=== PATIENT | female | born 1950 | race Caucasian/White ===

== ENCOUNTER 2023-06-14 16:25 | Inpatient (IN) | payer MEDICARE, OTHER ==
[~2023-06-14] VITALS: Ht 167.6 cm; Wt 80.0 kg
[2023-06-14] MEDS ORDERED: FAMOTIDINE (10MG/ML) 2ML VL IV ONE (17:15)
[2023-06-14] MEDS ORDERED: diphenhdrAMINE HCL 25 MG CAP PO ONE (17:15)
[2023-06-14] MEDS ORDERED: methylPREDNISolone SOD SUCC 40 MG/ML VL IV ONE (17:15)
[2023-06-14] MEDS ORDERED: EPINEPHrine HCL 1 MG/1 ML AMP IM ONE (17:15)
[2023-06-14] MEDS ORDERED: SODIUM CHLORIDE 0.9% 500 ML IV ONE (17:15)
[2023-06-14 17:27] LABS: Hematocrit 44.8 % (36.0-46.0); Hemoglobin 14.9 g/dL (12.2-16.2); Mean Corpuscular Hemoglobin 31.2 pg (28.0-32.0); Mean Corpuscular Hgb Conc. 33.2 g/dL (32.0-36.0); Mean Corpuscular Volume 93.9 fL (80.0-100.0); Red Blood Cells 4.77 10^6/uL (4.0-5.20); Red Cell Distribution Width 13.6 % (11.8-14.3); White Blood Cell 22.8 10^3/uL (4.4-10.8)
[2023-06-14 17:45] LABS: Band Neutrophils % (manual) 0; Basophils % (manual) 0 (0.0-2.0); Blast Cells 0; Metamyelocytes % 0; Myelocytes % 0; Promyelocytes % 0; Reactive Lymphocytes 0
[2023-06-14 17:47] LABS: Albumin 2.4 g/dL (3.4-5.0); Calcium 8.7 mg/dL (8.5-10.1); Potassium 3.8 mmol/L (3.5-5.1)
[2023-06-14 17:51] LABS: BUN/Creatinine Ratio 14.5 (10.0-20.0); Bilirubin, Total 0.3 mg/dL (0.2-1.0); Total Protein 6.9 g/dL (6.4-8.2)
[2023-06-14] MEDS ORDERED: methylPREDNISolone SOD SUCC 125 MG/2 ML VL IV ONE (18:00)
[2023-06-14] MEDS ORDERED: ALBUTEROL SULF 2.5 MG/0.5ML(0.5%) NEB SOLN NEB ONE (19:00)
[2023-06-14] MEDS ORDERED: ALBUTEROL SULF 2.5 MG/0.5ML(0.5%) NEB SOLN ONE (19:03)
[2023-06-14 19:25] LABS: Eosinophils % (manual) 64 (0-7); Lymphocytes % (manual) 6 (10.0-50.0); Monocytes % (manual) 3 (0-12)
[2023-06-14 19:26] LABS: Platelet Estimate Adequate; RBC Morphology Normal
[2023-06-14 19:42] LABS: Lactic Acid w/Reflex 2.1 mmol/L (0.4-2.0)
[2023-06-14] MEDS ORDERED: ALBUTEROL SULF 2.5 MG/0.5ML(0.5%) NEB SOLN NEB PRN (21:45)
[2023-06-14] MEDS ORDERED: MORPHINE SULFATE INJ 2 MG/ml SYRG IV PRN (21:45)
[2023-06-14] MEDS ORDERED: NITROGLYCERIN 0.4 MG SL TAB SL PRN (21:45)
[2023-06-14] MEDS ORDERED: ACETAMINOPHEN 325 MG TAB PO PRN (21:45)
[2023-06-14] MEDS ORDERED: IPRATROPIUM BROM 0.5 MG/2.5ML INH SOL NEB PRN (21:45)
[2023-06-14 21:54] VITALS: BP 109/86; PULSE 72; RESP 20; TEMP 98.2; O2SAT 97
[2023-06-14] MEDS ORDERED: SODIUM CHLORIDE 0.9% 1,000 ML IV ONE (22:00)
[2023-06-14] MEDS: IPRATROPIUM BROM 0.5 MG/2.5ML INH SOL NEB SCH (22:12)
[2023-06-14 22:13] VITALS: O2SAT 96
[2023-06-14] MEDS: ALBUTEROL SULF 2.5 MG/0.5ML(0.5%) NEB SOLN NEB SCH (22:13)
[2023-06-14] MEDS ORDERED: FLUT100I PO (22:14)
[2023-06-14] MEDS ORDERED: LISI2.5T47 PO (22:14)
[2023-06-14] MEDS ORDERED: LEVO-177 PO (22:14)
[2023-06-14 22:19] LABS: Urine Bacteria FEW /hpf (None Seen); Urine Blood TRACE /uL (Negative); Urine Clarity HAZY (Clear); Urine Color Yellow (Yellow); Urine Hyaline Cast FEW /lpf (0 - 2); Urine Mucus FEW (None Seen); Urine Protein, UAD 1+ (Negative); Urine Specific Gravity 1.018 (1.001-1.035); Urine Urobilinogen Normal (Negative); Urine WBC 12 /hpf (0 - 5); Urine pH 5.5 (5.0-8.0)
[2023-06-14] MEDS: ceFAZolin 1GM/50ML 50 ML IV SCH (22:39)
[2023-06-14] MEDS ORDERED: methylPREDNISolone SOD SUCC 125 MG/2 ML VL ONE (22:52)
[2023-06-14] MEDS: methylPREDNISolone SOD SUCC 40 MG/ML VL IV SCH (23:21)
[2023-06-14 23:45] VITALS: PULSE 81; RESP 19; O2SAT 100
[2023-06-15] VITALS (13 sets, daily range): PULSE 88–115; RESP 18–24; O2SAT 96–99
[2023-06-15 01:04] LABS: COVID19 ANTIGEN SOFIA FIA NEGATIVE (NEGATIVE)
[2023-06-15] MEDS: ALBUTEROL SULF 2.5 MG/0.5ML(0.5%) NEB SOLN NEB SCH ×6 (02:00→22:29)
[2023-06-15] MEDS: IPRATROPIUM BROM 0.5 MG/2.5ML INH SOL NEB SCH ×6 (02:00→22:29)
[2023-06-15] MEDS: diphenhdrAMINE HCL 25 MG CAP PO PRN ×3 (02:04→15:58)
[2023-06-15 04:49] LABS: Hematocrit 39.1 % (36.0-46.0); Hemoglobin 12.9 g/dL (12.2-16.2); Mean Corpuscular Hemoglobin 31.4 pg (28.0-32.0); Mean Corpuscular Hgb Conc. 33.1 g/dL (32.0-36.0); Red Blood Cells 4.11 10^6/uL (4.0-5.20); Red Cell Distribution Width 13.3 % (11.8-14.3); White Blood Cell 16.8 10^3/uL (4.4-10.8)
[2023-06-15 05:01] LABS: Albumin 2.4 g/dL (3.4-5.0); Calcium 8.2 mg/dL (8.5-10.1); Potassium 3.8 mmol/L (3.5-5.1)
[2023-06-15 05:04] LABS: BUN/Creatinine Ratio 16.9 (10.0-20.0); Bilirubin, Total 0.2 mg/dL (0.2-1.0); Total Protein 6.8 g/dL (6.4-8.2)
[2023-06-15 05:19] LABS: Basophils % (manual) 0 (0.0-2.0); Blast Cells 0; Metamyelocytes % 0; Myelocytes % 0; Promyelocytes % 0; Reactive Lymphocytes 0
[2023-06-15] MEDS: ceFAZolin 1GM/50ML 50 ML IV SCH (05:59)
[2023-06-15] MEDS: LEVOTHYROXINE SODIUM 88 MCG TAB PO SCH (06:57)
[2023-06-15 08:48] LABS: Band Neutrophils % (manual) 3
[2023-06-15 08:49] LABS: Eosinophils % (manual) 38 (0-7); Lymphocytes % (manual) 15 (10.0-50.0); Monocytes % (manual) 3 (0-12)
[2023-06-15 08:50] LABS: Platelet Estimate Adequate; RBC Morphology Normal
[2023-06-15] MEDS ORDERED: methylPREDNISolone SOD SUCC 125 MG/2 ML VL ONE (10:31)
[2023-06-15] MEDS: FAMOTIDINE (10MG/ML) 2ML VL IV SCH ×2 (10:37→23:27)
[2023-06-15] MEDS: methylPREDNISolone SOD SUCC 40 MG/ML VL IV SCH ×2 (10:40→23:27)
[2023-06-15] MEDS: cefTRIAXone 1GM/50ML D5W 50 ML IV SCH (13:00)
[2023-06-15] MEDS: SODIUM CHLORIDE 0.9% 1,000 ML IV SCH ×3 (13:00→22:00)
[2023-06-15] MEDS ORDERED: PRAVASTATIN SODIUM 20 MG TAB PO SCH (22:00)
[2023-06-16] VITALS (9 sets, daily range): BP systolic 133–152; BP diastolic 54–80; PULSE 76–91; RESP 16–20; TEMP 97.4–98.7; O2SAT 90–99
[2023-06-16] MEDS: diphenhdrAMINE HCL 25 MG CAP PO PRN ×2 (01:08→08:55)
[2023-06-16] MEDS: IPRATROPIUM BROM 0.5 MG/2.5ML INH SOL NEB SCH ×4 (02:00→14:00)
[2023-06-16] MEDS: ALBUTEROL SULF 2.5 MG/0.5ML(0.5%) NEB SOLN NEB SCH ×4 (02:00→14:00)
[2023-06-16] MEDS ORDERED: PRAV20TA3 PO (04:46)
[2023-06-16] MEDS: SODIUM CHLORIDE 0.9% 1,000 ML IV SCH (06:10)
[2023-06-16] MEDS: LEVOTHYROXINE SODIUM 88 MCG TAB PO SCH (06:20)
[2023-06-16 08:28] LABS: Hemoglobin 11.8 g/dL (12.2-16.2)
[2023-06-16 08:31] LABS: Hematocrit 35.9 % (36.0-46.0); Mean Corpuscular Hemoglobin 31.1 pg (28.0-32.0); Mean Corpuscular Hgb Conc. 32.9 g/dL (32.0-36.0); Mean Corpuscular Volume 94.4 fL (80.0-100.0); Red Blood Cells 3.81 10^6/uL (4.0-5.20); Red Cell Distribution Width 13.5 % (11.8-14.3)
[2023-06-16 08:38] LABS: Albumin 2.7 g/dL (3.4-5.0); Calcium 7.7 mg/dL (8.5-10.1); Potassium 3.9 mmol/L (3.5-5.1)
[2023-06-16 08:41] LABS: BUN/Creatinine Ratio 20.9 (10.0-20.0); Bilirubin, Total 0.2 mg/dL (0.2-1.0); Total Protein 7.4 g/dL (6.4-8.2)
[2023-06-16] MEDS: cefTRIAXone 1GM/50ML D5W 50 ML IV SCH (08:55)
[2023-06-16 09:26] LABS: White Blood Cell 31.6 10^3/uL (4.4-10.8)
[2023-06-16 09:29] LABS: Basophils % (manual) 0 (0.0-2.0); Blast Cells 0; Promyelocytes % 0; Reactive Lymphocytes 0
[2023-06-16] MEDS ORDERED: PRED20TA2 PO ×2 (11:17)
[2023-06-16] MEDS ORDERED: NITR-52 PO ×2 (11:17)
[2023-06-16] MEDS: FAMOTIDINE (10MG/ML) 2ML VL IV SCH (11:49)
[2023-06-16] MEDS: methylPREDNISolone SOD SUCC 40 MG/ML VL IV SCH (11:49)
[2023-06-16 12:02] LABS: Band Neutrophils % (manual) 9; Eosinophils % (manual) 18 (0-7); Lymphocytes % (manual) 10 (10.0-50.0); Metamyelocytes % 3; Monocytes % (manual) 6 (0-12); Myelocytes % 1; Platelet Estimate Adequate
== END 2023-06-16 15:25 | disposition home or self-care (01) | DRG 606 ==
LOC: ER 16:25 → TELE 21:49 → TELE-EAST 06-15 22:02
PROVIDERS: ADMIT Internal Medicine Pulmonary Disease
DX: L50.0 Allergic urticaria (principal); E43 Unspecified severe protein-calorie malnutrition; N12 Tubulo-interstitial nephritis, not specified as acute or chronic; N17.9 Acute kidney failure, unspecified; I10 Essential (primary) hypertension; E78.5 Hyperlipidemia, unspecified; E03.9 Hypothyroidism, unspecified; E86.0 Dehydration; E11.9 Type 2 diabetes mellitus without complications; Z68.28 Body mass index [BMI] 28.0-28.9, adult; Z85.3 Personal history of malignant neoplasm of breast; Z88.5 Allergy status to narcotic agent; Z88.8 Allergy status to other drugs, medicaments and biological substances
CPT/HCPCS: 36415; 71045; 80053; 81001; 82550; 83036; 83605; 84443; 84484; 85007; 85027; 87040; 87426; 93005; 94640; 96361; 96372; 96374; 96375; G0378; J0171; J0690; J0696; J3490

== ENCOUNTER 2023-06-17 14:25 | Inpatient (IN) | payer MEDICARE, OTHER ==
[~2023-06-17] VITALS: Ht 167.6 cm; Wt 79.0 kg
[~2023-06-17 14:25] MED LIST: FLUT100I PO; LEVO-177 PO; LISI2.5T47 PO; NITR-52 PO; PRAV20TA3 PO; PRED20TA2 PO
[2023-06-17] MEDS ORDERED: ALBUTEROL SULF 2.5 MG/0.5ML(0.5%) NEB SOLN NEB ONE ×2 (14:45→18:15)
[2023-06-17] MEDS ORDERED: DexAMETHasone SOD PHOS 10MG/1ML VIAL INJ IM ONE (14:45)
[2023-06-17] MEDS ORDERED: IPRATROPIUM BROM 0.5 MG/2.5ML INH SOL NEB ONE ×2 (14:45→18:15)
[2023-06-17 14:55] LABS: Hemoglobin 12.4 g/dL (12.2-16.2); Mean Corpuscular Hgb Conc. 32.9 g/dL (32.0-36.0)
[2023-06-17 14:56] LABS: Hematocrit 37.6 % (36.0-46.0); Mean Corpuscular Hemoglobin 31.3 pg (28.0-32.0); Mean Corpuscular Volume 95.2 fL (80.0-100.0); Red Blood Cells 3.95 10^6/uL (4.0-5.20); Red Cell Distribution Width 14.1 % (11.8-14.3)
[2023-06-17 15:03] LABS: White Blood Cell 37.4 10^3/uL (4.4-10.8)
[2023-06-17 15:06] LABS: Basophils % (manual) 0 (0.0-2.0); Blast Cells 0; Metamyelocytes % 0; Myelocytes % 0; Promyelocytes % 0; Reactive Lymphocytes 0
[2023-06-17 15:15] LABS: INR 1.16 (0.9-1.15); Partial Thromboplastin Time 25.9 SEC (24.5-34.5); Prothrombin Time 12.1 sec (9.3-11.8)
[2023-06-17] MEDS ORDERED: PIPERACILLIN-TAZOB 3.375GM 100 ML IV ONE (15:15)
[2023-06-17] MEDS ORDERED: SODIUM CHLORIDE 0.9% 1,000 ML IV ONE (15:15)
[2023-06-17] MEDS ORDERED: VANCOMYCIN PER PHARMACY 0 MG IV SCH (15:15)
[2023-06-17 15:24] LABS: Urine Bacteria FEW /hpf (None Seen); Urine Blood 2+ /uL (Negative); Urine Clarity Clear (Clear); Urine Color Yellow (Yellow); Urine Hyaline Cast FEW /lpf (0 - 2); Urine Protein, UAD 1+ (Negative); Urine Specific Gravity 1.012 (1.001-1.035); Urine Urobilinogen Normal (Negative); Urine WBC <1 /hpf (0 - 5); Urine pH 5.5 (5.0-8.0)
[2023-06-17 15:27] LABS: Band Neutrophils % (manual) 3; Calcium 8.3 mg/dL (8.5-10.1); Eosinophils % (manual) 33 (0-7); Lymphocytes % (manual) 11 (10.0-50.0); Magnesium 2.5 mg/dL (1.6-2.6); Monocytes % (manual) 7 (0-12); Potassium 4.3 mmol/L (3.5-5.1)
[2023-06-17 15:28] LABS: Platelet Estimate Adequate
[2023-06-17 15:31] LABS: BUN/Creatinine Ratio 23.9 (10.0-20.0); Bilirubin, Total 0.4 mg/dL (0.2-1.0); Total Protein 7.6 g/dL (6.4-8.2)
[2023-06-17] MEDS ORDERED: VANCOMYCIN 1GM/250ML 250 ML IV ONE (15:45)
[2023-06-17 15:55] VITALS: PULSE 94; RESP 25; O2SAT 94
[2023-06-17] MEDS ORDERED: VANCOMYCIN 1GM/250ML 250 ML IV SCH (16:00)
[2023-06-17] MEDS ORDERED: FUROSEMIDE 40 MG/4 ML VIAL IV ONE (18:00)
[2023-06-17] MEDS ORDERED: ENOXAPARIN SOD 60 MG/0.6 ML SYRINGE SC ONE (18:00)
[2023-06-17] MEDS ORDERED: MORPHINE SULFATE INJ 2 MG/ml SYRG IV PRN (18:15)
[2023-06-17] MEDS ORDERED: ONDANSETRON HCL 4 MG/2 ML VIAL IV PRN (18:15)
[2023-06-17] MEDS ORDERED: ACETAMINOPHEN 325 MG TAB PO PRN (18:15)
[2023-06-17] MEDS ORDERED: NITROGLYCERIN 0.4 MG SL TAB SL PRN (18:15)
[2023-06-17] MEDS ORDERED: hydrALAZINE HCL 20 MG/ML VL IV PRN (18:15)
[2023-06-17 18:26] VITALS: BP 160/85; PULSE 94; RESP 20; TEMP 98; O2SAT 93
[2023-06-17 18:50] LABS: Basophils # (auto) 0.2 10 ^3/uL (0-0.2); Mean Corpuscular Hemoglobin 31.2 pg (28.0-32.0); Mean Corpuscular Hgb Conc. 32.8 g/dL (32.0-36.0); Red Blood Cells 3.84 10^6/uL (4.0-5.20)
[2023-06-17 18:52] LABS: Basophils % (auto) 0.6 % (0.0-2.0); Eosinophils # (auto) 10.7 10 ^3/uL (0-0.8); Hematocrit 36.6 % (36.0-46.0); Lymphocytes # (auto) 3.7 10 ^3/uL (0.4-5.4); Lymphocytes % (auto) 10.4 % (10.0-50.0); Mean Corpuscular Volume 95.1 fL (80.0-100.0); Monocytes # (auto) 1.1 10 ^3/uL (0-1.3); Monocytes % (auto) 3.2 % (0.0-12.0); Neutrophils # (auto) 19.9 10 ^3/uL (1.6-8.6); Neutrophils % (auto) 55.7 % (37.0-80.0); Nucleated Red Blood Cells % 0.1 %
[2023-06-17 18:55] LABS: Eosinophils % (auto) 30.1 % (0.0-7.0)
[2023-06-17 18:57] LABS: White Blood Cell 35.6 10^3/uL (4.4-10.8)
[2023-06-17 20:00] VITALS: PULSE 92; RESP 29; O2SAT 91
[2023-06-17] MEDS: ATORVASTATIN 20 MG TAB PO SCH (22:33)
[2023-06-18 00:21] VITALS: PULSE 82; RESP 20; O2SAT 96
[2023-06-18 00:31] VITALS: PULSE 81; RESP 16; O2SAT 99
[2023-06-18] MEDS: ALBUTEROL SULF 2.5 MG/0.5ML(0.5%) NEB SOLN NEB PRN ×2 (00:38→07:08)
[2023-06-18 05:51] VITALS: O2SAT 95
[2023-06-18] MEDS ORDERED: FUROSEMIDE 20 MG/2 ML VIAL IV SCH (06:00)
[2023-06-18 06:20] LABS: Hematocrit 35.2 % (36.0-46.0); Hemoglobin 11.9 g/dL (12.2-16.2); Mean Corpuscular Hemoglobin 31.8 pg (28.0-32.0); Mean Corpuscular Hgb Conc. 33.7 g/dL (32.0-36.0); Mean Corpuscular Volume 94.3 fL (80.0-100.0); Red Blood Cells 3.73 10^6/uL (4.0-5.20); Red Cell Distribution Width 13.8 % (11.8-14.3); White Blood Cell 25.7 10^3/uL (4.4-10.8)
[2023-06-18 06:24] LABS: Basophils % (manual) 0 (0.0-2.0); Blast Cells 0; Metamyelocytes % 0; Myelocytes % 0; Promyelocytes % 0; Reactive Lymphocytes 0
[2023-06-18 06:42] LABS: Albumin 2.7 g/dL (3.4-5.0); Calcium 8.1 mg/dL (8.5-10.1); Potassium 3.8 mmol/L (3.5-5.1)
[2023-06-18 06:44] LABS: BUN/Creatinine Ratio 22.9 (10.0-20.0); Bilirubin, Total 0.5 mg/dL (0.2-1.0); Total Protein 7.1 g/dL (6.4-8.2)
[2023-06-18 06:49] LABS: Band Neutrophils % (manual) 2; Eosinophils % (manual) 14 (0-7); Lymphocytes % (manual) 19 (10.0-50.0); Monocytes % (manual) 9 (0-12)
[2023-06-18 06:52] LABS: Platelet Estimate Adequate
[2023-06-18] MEDS: LEVOTHYROXINE SODIUM 88 MCG TAB PO SCH (07:06)
[2023-06-18 07:09] VITALS: PULSE 84; RESP 22; O2SAT 94
[2023-06-18 07:15] VITALS: PULSE 79; RESP 19; O2SAT 99
[2023-06-18] MEDS: cefTRIAXone 1GM/50ML D5W 50 ML IV SCH (09:00)
[2023-06-18] MEDS: LISINOPRIL 5 MG TAB PO SCH (10:00)
[2023-06-18] MEDS: AZITHROMYCIN 500MG/ 250ML 250 ML IV SCH (10:00)
[2023-06-18] MEDS ORDERED: ASPirin 81 mg TAB PO SCH (10:00)
[2023-06-18] MEDS ORDERED: PANTOPRAZOLE 40 MG TAB PO SCH (10:00)
[2023-06-18] MEDS ORDERED: diphenhdrAMINE HCL 25 MG CAP PO ONE (12:00)
[2023-06-18] MEDS: PANTOPRAZOLE 40 MG TAB PO SCH (13:00)
[2023-06-18] MEDS ORDERED: ONDANSETRON HCL 4 MG/2 ML VIAL IV PRN (13:00)
[2023-06-18] MEDS: FAMOTIDINE (10MG/ML) 2ML VL IV SCH (13:00)
[2023-06-18] MEDS: LORATADINE 10 MG TAB PO SCH (13:00)
[2023-06-18] MEDS ORDERED: MORPHINE SULFATE INJ 2 MG/ml SYRG IV PRN (13:00)
[2023-06-18] MEDS: HEPARIN DRIP/D5W 100UNITS/ML 250 ML IV SCH (13:45)
[2023-06-18] MEDS ORDERED: HEPARIN SODIUM (PORCINE) 5000 UNITS/ML 1ML VIAL IV ONE (14:15)
[2023-06-18] MEDS ORDERED: OPTISON 3ml Vial for INJ IV ONE ×2 (14:22→15:00)
[2023-06-18 15:43] LABS: Hematocrit 34.1 % (36.0-46.0); Hemoglobin 11.4 g/dL (12.2-16.2); Mean Corpuscular Hemoglobin 31.2 pg (28.0-32.0); Mean Corpuscular Hgb Conc. 33.4 g/dL (32.0-36.0); Mean Corpuscular Volume 93.4 fL (80.0-100.0); Red Blood Cells 3.65 10^6/uL (4.0-5.20); Red Cell Distribution Width 13.8 % (11.8-14.3); White Blood Cell 29.2 10^3/uL (4.4-10.8)
[2023-06-18 15:56] LABS: Basophils % (manual) 0 (0.0-2.0); Blast Cells 0; Myelocytes % 0; Reactive Lymphocytes 0
[2023-06-18 16:00] LABS: INR 1.19 (0.9-1.15); Prothrombin Time 12.4 sec (9.3-11.8)
[2023-06-18] MEDS ORDERED: diphenhdrAMINE HCL 25 MG CAP PO PRN (16:00)
[2023-06-18 16:04] LABS: Thyroid Stimulating Hormone 0.85 uIU/mL (0.358-3.74)
[2023-06-18 16:46] LABS: Band Neutrophils % (manual) 5; Eosinophils % (manual) 25 (0-7); Lymphocytes % (manual) 11 (10.0-50.0); Metamyelocytes % 3; Monocytes % (manual) 5 (0-12); Platelet Estimate Adequate; Promyelocytes % 2
[2023-06-18] MEDS ORDERED: DEXTROSE (50%) 50ML SYRG IV PRN (17:00)
[2023-06-18] MEDS ORDERED: hydrALAZINE HCL 20 MG/ML VL IV PRN (17:00)
[2023-06-18 17:24] LABS: Cholesterol 103 mg/dL (< 200)
[2023-06-18 17:27] LABS: HDL Cholesterol 39 mg/dL (40-59); LDL Cholesterol 55 mg/dL (< 100); Triglycerides 207 mg/dL (< 150)
[2023-06-18] MEDS: InsuLIN REG 1unit/0.01ml Soln (100units/ml) SC SCH (18:00)
[2023-06-18] MEDS: ACCU-CHEK COMFORT CURVE STRIP VI SCH (18:27)
[2023-06-18] MEDS: diphenhdrAMINE HCL 50 MG/1 ML VL IV PRN (18:27)
[2023-06-18] MEDS: FUROSEMIDE 20 MG/2 ML VIAL IV SCH (18:38)
[2023-06-18 19:30] VITALS: PULSE 87; RESP 16; O2SAT 95
[2023-06-18 20:21] LABS: INR 1.3 (0.9-1.15); Prothrombin Time 13.4 sec (9.3-11.8)
[2023-06-18] MEDS: METOPROLOL TARTRATE 25 MG TAB PO SCH (22:21)
[2023-06-18] MEDS: ATORVASTATIN 20 MG TAB PO SCH (22:21)
[2023-06-19] VITALS (10 sets, daily range): BP systolic 107–121; BP diastolic 53–71; PULSE 67–78; RESP 18–20; TEMP 97.7–98.3; O2SAT 94–98
[2023-06-19] MEDS: ACCU-CHEK COMFORT CURVE STRIP VI SCH ×3 (00:06→11:38)
[2023-06-19] MEDS: InsuLIN REG 1unit/0.01ml Soln (100units/ml) SC SCH ×4 (05:26→17:47)
[2023-06-19] MEDS: FUROSEMIDE 20 MG/2 ML VIAL IV SCH ×2 (05:26→17:18)
[2023-06-19 05:48] LABS: Hemoglobin 11.8 g/dL (12.2-16.2); Mean Corpuscular Hgb Conc. 33.8 g/dL (32.0-36.0); Red Blood Cells 3.74 10^6/uL (4.0-5.20); Red Cell Distribution Width 13.6 % (11.8-14.3)
[2023-06-19 05:51] LABS: Hematocrit 34.9 % (36.0-46.0); Mean Corpuscular Hemoglobin 31.6 pg (28.0-32.0); Mean Corpuscular Volume 93.3 fL (80.0-100.0)
[2023-06-19 06:03] LABS: Calcium 7.6 mg/dL (8.5-10.1); Potassium 3.6 mmol/L (3.5-5.1)
[2023-06-19 06:05] LABS: BUN/Creatinine Ratio 20.5 (10.0-20.0)
[2023-06-19 06:08] LABS: INR 1.25 (0.9-1.15); Prothrombin Time 12.9 sec (9.3-11.8)
[2023-06-19 06:09] LABS: White Blood Cell 42.4 10^3/uL (4.4-10.8)
[2023-06-19 06:11] LABS: Band Neutrophils % (manual) 0; Basophils % (manual) 0 (0.0-2.0); Blast Cells 0; Metamyelocytes % 0; Promyelocytes % 0; Reactive Lymphocytes 0
[2023-06-19 06:14] LABS: Partial Thromboplastin Time 90.9 SEC (24.5-34.5)
[2023-06-19 06:23] LABS: Protein, Urine 23.6 mg/dL (0.0-11.9)
[2023-06-19] MEDS: LEVOTHYROXINE SODIUM 88 MCG TAB PO SCH (06:23)
[2023-06-19 06:32] LABS: Urine Protein/Creatinine Ratio 2.36
[2023-06-19] MEDS: HEPARIN DRIP/D5W 100UNITS/ML 250 ML IV SCH (07:23)
[2023-06-19 08:49] LABS: Lymphocytes % (manual) 25 (10.0-50.0); Monocytes % (manual) 2 (0-12)
[2023-06-19 08:50] LABS: Eosinophils % (manual) 50 (0-7); Myelocytes % 4; Platelet Estimate Adequate
[2023-06-19] MEDS: cefTRIAXone 1GM/50ML D5W 50 ML IV SCH (08:59)
[2023-06-19] MEDS ORDERED: FAMOTIDINE (10MG/ML) 2ML VL IV SCH (10:00)
[2023-06-19] MEDS ORDERED: LORATADINE 10 MG TAB PO SCH (10:00)
[2023-06-19] MEDS: AZITHROMYCIN 500MG/ 250ML 250 ML IV SCH (10:22)
[2023-06-19] MEDS: ASPirin 81 mg TAB PO SCH (11:16)
[2023-06-19] MEDS: LORATADINE 10 MG TAB PO SCH (11:16)
[2023-06-19] MEDS: METOPROLOL TARTRATE 25 MG TAB PO SCH ×2 (11:16→22:43)
[2023-06-19] MEDS: LISINOPRIL 5 MG TAB PO SCH (11:17)
[2023-06-19] MEDS: FAMOTIDINE (10MG/ML) 2ML VL IV SCH (11:17)
[2023-06-19] MEDS: PANTOPRAZOLE 40 MG TAB PO SCH (11:18)
[2023-06-19 13:42] LABS: INR 1.17 (0.9-1.15); Partial Thromboplastin Time 40.7 SEC (24.5-34.5); Prothrombin Time 12.2 sec (9.3-11.8)
[2023-06-19] MEDS: ACYCLOVIR 400 MG TAB PO SCH ×2 (14:36→22:42)
[2023-06-19] MEDS: diphenhdrAMINE HCL 50 MG/1 ML VL IV PRN (17:21)
[2023-06-19 18:27] LABS: Erythrocyte Sedimentation Rate 54 mm/hr (0-20)
[2023-06-19] MEDS: ATORVASTATIN 20 MG TAB PO SCH (22:00)
[2023-06-20] VITALS (7 sets, daily range): BP systolic 101–117; BP diastolic 49–65; PULSE 55–96; RESP 16–19; TEMP 97.9–98.5; O2SAT 94–97
[2023-06-20] MEDS: InsuLIN REG 1unit/0.01ml Soln (100units/ml) SC SCH ×3 (06:00→11:57)
[2023-06-20] MEDS: ACYCLOVIR 400 MG TAB PO SCH ×3 (06:28→22:18)
[2023-06-20] MEDS: LEVOTHYROXINE SODIUM 88 MCG TAB PO SCH (06:28)
[2023-06-20] MEDS: FUROSEMIDE 20 MG/2 ML VIAL IV SCH (06:29)
[2023-06-20 08:16] LABS: Basophils # (auto) 0.2 10 ^3/uL (0-0.2); Basophils % (auto) 0.6 % (0.0-2.0)
[2023-06-20 08:17] LABS: Eosinophils # (auto) 19.5 10 ^3/uL (0-0.8); Hematocrit 40.6 % (36.0-46.0); Hemoglobin 13.8 g/dL (12.2-16.2); Lymphocytes # (auto) 5.2 10 ^3/uL (0.4-5.4); Lymphocytes % (auto) 16.1 % (10.0-50.0); Mean Corpuscular Hemoglobin 31.9 pg (28.0-32.0); Mean Corpuscular Volume 93.8 fL (80.0-100.0); Neutrophils # (auto) 6.6 10 ^3/uL (1.6-8.6); Neutrophils % (auto) 20.3 % (37.0-80.0); Red Blood Cells 4.33 10^6/uL (4.0-5.20); Red Cell Distribution Width 13.4 % (11.8-14.3)
[2023-06-20] MEDS: cefTRIAXone 1GM/50ML D5W 50 ML IV SCH (08:17)
[2023-06-20 08:25] LABS: BUN/Creatinine Ratio 21.5 (10.0-20.0); Calcium 8.8 mg/dL (8.5-10.1); Potassium 3.9 mmol/L (3.5-5.1)
[2023-06-20 08:32] LABS: White Blood Cell 32.6 10^3/uL (4.4-10.8)
[2023-06-20 08:53] LABS: Basophils % (manual) 0 (0.0-2.0); Blast Cells 0; Myelocytes % 0; Promyelocytes % 0; Reactive Lymphocytes 0
[2023-06-20] MEDS: FAMOTIDINE (10MG/ML) 2ML VL IV SCH (09:42)
[2023-06-20] MEDS: ASPirin 81 mg TAB PO SCH (09:43)
[2023-06-20] MEDS: LISINOPRIL 5 MG TAB PO SCH (09:43)
[2023-06-20] MEDS: LORATADINE 10 MG TAB PO SCH (09:43)
[2023-06-20] MEDS: METOPROLOL TARTRATE 25 MG TAB PO SCH (09:43)
[2023-06-20] MEDS ORDERED: LIDOCAINE 2%HCL (LOCAL ANESTH.) INJ 10ml MDV ONE (10:30)
[2023-06-20] MEDS ORDERED: fentaNYL CITRATE 100 MCG/2 ML VL IV ONE (10:45)
[2023-06-20] MEDS: FUROSEMIDE 40 MG TAB PO SCH (11:00)
[2023-06-20 12:08] LABS: Band Neutrophils % (manual) 2; Eosinophils % (manual) 45 (0-7); Lymphocytes % (manual) 11 (10.0-50.0); Metamyelocytes % 3; Monocytes % (manual) 6 (0-12); Platelet Estimate Adequate
[2023-06-20] MEDS ORDERED: hydrOXYzine HCL 10 MG TAB PO ONE (13:45)
[2023-06-20 19:12] LABS: Band Neutrophils % (manual) 0; Basophils % (manual) 0 (0.0-2.0); Blast Cells 0; Myelocytes % 0; Promyelocytes % 0; Reactive Lymphocytes 0
[2023-06-20 19:18] LABS: Nucleated Red Blood Cells % 0.1 %
[2023-06-20 20:09] LABS: Eosinophils % (manual) 51 (0-7); Lymphocytes % (manual) 17 (10.0-50.0); Monocytes % (manual) 4 (0-12)
[2023-06-20 20:10] LABS: Large Platelets FEW; Metamyelocytes % 1; Platelet Estimate Adequate; RBC Morphology Normal
[2023-06-20] MEDS: ATORVASTATIN 20 MG TAB PO SCH (22:00)
[2023-06-20] MEDS: FAMOTIDINE 20 MG TAB PO SCH (22:17)
[2023-06-20] MEDS: hydrOXYzine HCL 10 MG TAB PO SCH (22:18)
[2023-06-21 05:00] VITALS: BP_SYST 102; BP_SYST 107; BP_DIAS 56; BP_DIAS 66; PULSE 68; PULSE 82; RESP 18; TEMP 97.9; TEMP 98.1; O2SAT 92; O2SAT 94
[2023-06-21 06:15] LABS: Hemoglobin 12.6 g/dL (12.2-16.2); Mean Corpuscular Hemoglobin 32.1 pg (28.0-32.0); Mean Corpuscular Hgb Conc. 34.1 g/dL (32.0-36.0); Mean Corpuscular Volume 94.1 fL (80.0-100.0); Red Blood Cells 3.93 10^6/uL (4.0-5.20); Red Cell Distribution Width 13.4 % (11.8-14.3); White Blood Cell 28.5 10^3/uL (4.4-10.8)
[2023-06-21 06:21] VITALS: O2SAT 92
[2023-06-21 06:21] LABS: Band Neutrophils % (manual) 0; Basophils % (manual) 0 (0.0-2.0); Blast Cells 0; Metamyelocytes % 0; Myelocytes % 0; Promyelocytes % 0; Reactive Lymphocytes 0
[2023-06-21 06:22] LABS: Potassium 3.4 mmol/L (3.5-5.1)
[2023-06-21] MEDS: hydrOXYzine HCL 10 MG TAB PO SCH ×2 (06:27→14:00)
[2023-06-21] MEDS: ACYCLOVIR 400 MG TAB PO SCH ×2 (06:27→14:00)
[2023-06-21] MEDS: LEVOTHYROXINE SODIUM 88 MCG TAB PO SCH (06:27)
[2023-06-21 06:28] LABS: BUN/Creatinine Ratio 24.2 (10.0-20.0)
[2023-06-21 06:51] LABS: Eosinophils % (manual) 43 (0-7); Lymphocytes % (manual) 24 (10.0-50.0); Monocytes % (manual) 8 (0-12); Platelet Estimate Adequate
[2023-06-21] MEDS ORDERED: POTASSIUM CHL 20 Meq TABLET PO ONE (07:45)
[2023-06-21 08:00] VITALS: PULSE 94
[2023-06-21 08:06] LABS: Anti-Nuclear Antibody Direct Negative (Negative); Complement C3 134 mg/dL (82-167); Rheumatoid Arthritis Factor <10.0 IU/mL (<14.0)
[2023-06-21] MEDS ORDERED: POTASSIUM EFFERVESENT TAB 25 MEQ PO ONE (09:00)
[2023-06-21 09:05] VITALS: BP 108/70; PULSE 82; RESP 17; TEMP 97.7; O2SAT 93
[2023-06-21 09:06] LABS: CA 27.29 46.1 U/mL (0.0-38.6)
[2023-06-21] MEDS: cefTRIAXone 1GM/50ML D5W 50 ML IV SCH (09:09)
[2023-06-21] MEDS: ASPirin 81 mg TAB PO SCH (09:11)
[2023-06-21] MEDS: LORATADINE 10 MG TAB PO SCH (09:12)
[2023-06-21] MEDS: FAMOTIDINE 20 MG TAB PO SCH (09:13)
[2023-06-21] MEDS: LISINOPRIL 5 MG TAB PO SCH (09:13)
[2023-06-21] MEDS: FUROSEMIDE 40 MG TAB PO SCH (09:25)
[2023-06-21] MEDS ORDERED: LOSARTAN POTASSIUM 25 MG TAB PO SCH (10:00)
[2023-06-21] MEDS ORDERED: HYDR-4924 PO (10:18)
[2023-06-21] MEDS ORDERED: ACYC1TAB2 PO (10:18)
[2023-06-21] MEDS ORDERED: PRED20TA2 PO (10:18)
[2023-06-21] MEDS ORDERED: FAMO20TA10 PO (10:18)
[2023-06-21] MEDS ORDERED: FURO1TAB33 PO (10:19)
[2023-06-21] MEDS ORDERED: POTA-228 PO (10:19)
[2023-06-21] MEDS ORDERED: POTASSIUM EFFERVESENT TAB 25 MEQ PO SCH (10:45)
[2023-06-21 12:00] VITALS: BP 113/61; PULSE 80; RESP 18; TEMP 97.8; O2SAT 94
[2023-06-21 19:06] LABS: CCP IgG/IgA Antibody 3 units (0-19)
[2023-06-22 06:07] LABS: Albumin 2.7 g/dL (2.9-4.4); Alpha-1-Globulin 0.2 g/dL (0.0-0.4); Gamma Globulin 1.9 g/dL (0.4-1.8); Protein Total Serum 6.7 g/dL (6.0-8.5)
[2023-06-22] MEDS ORDERED: EMPAGLIFLOZIN 10 MG TAB PO SCH (07:00)
[2023-06-24 04:07] LABS: Complement Total (CH50) 60 U/mL (>41)
== END 2023-06-21 15:56 | disposition home or self-care (01) | DRG 871 ==
LOC: ER 14:31 → TELE 18:06 → TELE-EAST 06-19 10:19
PROVIDERS: ADMIT Internal Medicine; ATTEND Student in an Organized Health Care Education/Training Program
PROC: 05HF33Z Insertion of Infusion Device into Left Cephalic Vein, Percutaneous Approach (ICD-10-PCS; principal; 2023-06-17)
PROC: B54NZZA Ultrasonography of Left Upper Extremity Veins, Guidance (ICD-10-PCS; 2023-06-17)
PROC: 079T3ZX Drainage of Bone Marrow, Percutaneous Approach, Diagnostic (ICD-10-PCS; 2023-06-20)
DX: A41.9 Sepsis, unspecified organism (principal); I21.A1 Myocardial infarction type 2; I50.43 Acute on chronic combined systolic (congestive) and diastolic (congestive) heart failure; N17.0 Acute kidney failure with tubular necrosis; J96.01 Acute respiratory failure with hypoxia; J15.6 Pneumonia due to other Gram-negative bacteria; I26.99 Other pulmonary embolism without acute cor pulmonale; I13.0 Hypertensive heart and chronic kidney disease with heart failure and stage 1 through stage 4 chronic kidney disease, or unspecified chronic kidney disease; N39.0 Urinary tract infection, site not specified; C95.90 Leukemia, unspecified not having achieved remission; E05.00 Thyrotoxicosis with diffuse goiter without thyrotoxic crisis or storm; D63.1 Anemia in chronic kidney disease; N18.31 Chronic kidney disease, stage 3a; I44.7 Left bundle-branch block, unspecified; E11.22 Type 2 diabetes mellitus with diabetic chronic kidney disease; E03.9 Hypothyroidism, unspecified; E78.5 Hyperlipidemia, unspecified; E66.9 Obesity, unspecified; E83.51 Hypocalcemia; E87.6 Hypokalemia; D72.10 Eosinophilia, unspecified; Z68.28 Body mass index [BMI] 28.0-28.9, adult; Z88.5 Allergy status to narcotic agent; Z88.8 Allergy status to other drugs, medicaments and biological substances; Z83.3 Family history of diabetes mellitus; Z85.3 Personal history of malignant neoplasm of breast; Z80.52 Family history of malignant neoplasm of bladder; Z79.82 Long term (current) use of aspirin; Z92.3 Personal history of irradiation; Z80.3 Family history of malignant neoplasm of breast
CPT/HCPCS: 10005; 36415; 71045; 72192; 76775; 77012; 78582; 80048; 80053; 80061; 81001; 82306; 82570; 82785; 82962; 83605; 83615; 83735; 83880; 83970; 84100; 84155; 84156; 84165; 84300; 84443; 84484; 85007; 85025; 85027; 85379; 85610; 85652; 85730; 86038; 86141; 86160; 86162; 86200; 86300; 86431; 87040; 87086; 93005; 93306; 93970; 94640; 96365; 96367; 96372; 99291; G0378; J0696; J1100; J2001; J2543; J3490; Q9956

== ENCOUNTER → 2023-06-26 | Outpatient (CLI) | payer MEDICARE, OTHER ==
[~2023-06-26] MED LIST changes: +ACYC1TAB2 PO; +FAMO20TA10 PO; -FLUT100I PO; +FURO1TAB33 PO; +HYDR-4924 PO; -NITR-52 PO; +POTA-228 PO
[2023-06-26 10:08] LABS: Urine Bacteria NONE SEEN /hpf (None Seen); Urine Blood Negative /uL (Negative); Urine Clarity Clear (Clear); Urine Protein, UAD Negative (Negative); Urine Specific Gravity 1.009 (1.001-1.035); Urine Urobilinogen Normal (Negative); Urine WBC <1 /hpf (0 - 5)
[2023-06-26 10:10] LABS: Urine Color Straw (Yellow)
[2023-06-26 10:36] LABS: Basophils # (auto) 0.1 10 ^3/uL (0-0.2); Basophils % (auto) 0.9 % (0.0-2.0); Eosinophils # (auto) 0.8 10 ^3/uL (0-0.8); Eosinophils % (auto) 6.5 % (0.0-7.0); Hematocrit 40.4 % (36.0-46.0); Hemoglobin 13.3 g/dL (12.2-16.2); Lymphocytes # (auto) 4.3 10 ^3/uL (0.4-5.4); Lymphocytes % (auto) 32.9 % (10.0-50.0); Mean Corpuscular Hemoglobin 31.3 pg (28.0-32.0); Mean Corpuscular Hgb Conc. 32.9 g/dL (32.0-36.0); Mean Corpuscular Volume 95.3 fL (80.0-100.0); Monocytes # (auto) 1.3 10 ^3/uL (0-1.3); Monocytes % (auto) 10.4 % (0.0-12.0); Neutrophils # (auto) 6.4 10 ^3/uL (1.6-8.6); Neutrophils % (auto) 49.3 % (37.0-80.0); Nucleated Red Blood Cells % 0.1 %; Red Blood Cells 4.24 10^6/uL (4.0-5.20); Red Cell Distribution Width 13.5 % (11.8-14.3)
[2023-06-26 10:56] LABS: Albumin 3.4 g/dL (3.4-5.0); Calcium 9.6 mg/dL (8.5-10.1); Potassium 4.1 mmol/L (3.5-5.1)
[2023-06-26 10:59] LABS: BUN/Creatinine Ratio 23.4 (10.0-20.0); Bilirubin, Total 0.5 mg/dL (0.2-1.0); Total Protein 8.4 g/dL (6.4-8.2)
[2023-06-26 11:08] LABS: Protein, Urine 11.4 mg/dL (0.0-11.9); Urine Protein/Creatinine Ratio 0.44
== END | disposition home or self-care (01) ==
LOC: LAB 09:40
PROVIDERS: ATTEND Internal Medicine
DX: I10 Essential (primary) hypertension (principal); Z79.899 Other long term (current) drug therapy
CPT/HCPCS: 36415; 80053; 81001; 82306; 82570; 84156; 85025

== ENCOUNTER → 2023-08-28 | Outpatient (CLI) | payer MEDICARE, OTHER ==
[2023-08-28 14:43] LABS: Basophils # (auto) 0.1 10 ^3/uL (0-0.2); Basophils % (auto) 0.7 % (0.0-2.0); Eosinophils # (auto) 0.3 10 ^3/uL (0-0.8); Eosinophils % (auto) 3.3 % (0.0-7.0); Hematocrit 43.2 % (36.0-46.0); Hemoglobin 14.6 g/dL (12.2-16.2); Lymphocytes # (auto) 3.1 10 ^3/uL (0.4-5.4); Lymphocytes % (auto) 38.9 % (10.0-50.0); Mean Corpuscular Hemoglobin 32.1 pg (28.0-32.0); Mean Corpuscular Hgb Conc. 33.9 g/dL (32.0-36.0); Mean Corpuscular Volume 94.7 fL (80.0-100.0); Monocytes # (auto) 0.5 10 ^3/uL (0-1.3); Monocytes % (auto) 5.7 % (0.0-12.0); Neutrophils # (auto) 4.1 10 ^3/uL (1.6-8.6); Neutrophils % (auto) 51.4 % (37.0-80.0); Red Blood Cells 4.56 10^6/uL (4.0-5.20); Red Cell Distribution Width 13.1 % (11.8-14.3); White Blood Cell 8.1 10^3/uL (4.4-10.8)
[2023-08-28 14:47] LABS: Wright Stain Ready for Review
[2023-08-28 15:22] LABS: Creatinine, Urine 12.33 mg/dL (30.0-125.0)
[2023-08-28 15:25] LABS: Albumin 4.6 g/dL (3.2-4.8); Alkaline Phosphatase 104 U/L (46-116); Anion Gap 7 (5-15); Aspartate Aminotransferase 15 U/L (13-40); BUN/Creatinine Ratio 18.3 (10.0-20.0); Bilirubin, Total 0.3 mg/dL (0.2-1.0); Blood Urea Nitrogen 17 mg/dL (9-23); Calcium 9.9 mg/dL (8.5-10.1); Carbon Dioxide 27 mmol/L (20-30); Chloride 104 mmol/L (98-107); Glucose 84 mg/dL (74-106); Phosphorus 3.3 mg/dL (2.4-5.1); Potassium 3.7 mmol/L (3.5-5.1); Sodium 138 mmol/L (136-145); Total Protein 7.3 g/dL (5.7-8.2)
[2023-08-28 15:28] LABS: Alanine Aminotransferase < 9 U/L (7-40)
[2023-08-28 15:37] LABS: Uric Acid 7.3 mg/dL (3.1-7.8)
[2023-08-29 08:06] LABS: CA 27.29 72.4 U/mL (0.0-38.6)
== END | disposition home or self-care (01) ==
LOC: LAB 14:25
PROVIDERS: ATTEND Internal Medicine
DX: N18.30 Chronic kidney disease, stage 3 unspecified (principal); E11.21 Type 2 diabetes mellitus with diabetic nephropathy; M10.9 Gout, unspecified; E66.9 Obesity, unspecified; D72.10 Eosinophilia, unspecified; C50.612 Malignant neoplasm of axillary tail of left female breast; D63.1 Anemia in chronic kidney disease; E21.3 Hyperparathyroidism, unspecified; R80.9 Proteinuria, unspecified; N39.0 Urinary tract infection, site not specified
CPT/HCPCS: 36415; 80053; 82043; 82306; 82570; 83615; 83735; 83970; 84100; 84550; 85025; 86300

== ENCOUNTER 2023-10-18 08:00 | Day surgery (SDC) | payer MEDICARE, OTHER ==
[2023-10-17 11:45] LABS: Basophils # (auto) 0.1 10 ^3/uL (0-0.2); Basophils % (auto) 0.9 % (0.0-2.0); Eosinophils # (auto) 0.1 10 ^3/uL (0-0.8); Eosinophils % (auto) 1.8 % (0.0-7.0); Hematocrit 46.3 % (36.0-46.0); Hemoglobin 15.5 g/dL (12.2-16.2); Lymphocytes # (auto) 2.5 10 ^3/uL (0.4-5.4); Lymphocytes % (auto) 31.3 % (10.0-50.0); Mean Corpuscular Hemoglobin 31.8 pg (28.0-32.0); Mean Corpuscular Hgb Conc. 33.6 g/dL (32.0-36.0); Mean Corpuscular Volume 94.6 fL (80.0-100.0); Monocytes # (auto) 0.4 10 ^3/uL (0-1.3); Monocytes % (auto) 5.1 % (0.0-12.0); Neutrophils # (auto) 4.9 10 ^3/uL (1.6-8.6); Neutrophils % (auto) 60.9 % (37.0-80.0); Red Blood Cells 4.89 10^6/uL (4.0-5.20)
[2023-10-17 12:04] LABS: INR 1.03 (0.9-1.15); Partial Thromboplastin Time 25.9 SEC (24.5-34.5); Prothrombin Time 10.8 sec (9.3-11.8)
[2023-10-17 12:24] LABS: Albumin 4.7 g/dL (3.2-4.8); Alkaline Phosphatase 118 U/L (46-116); Anion Gap 8 (5-15); Aspartate Aminotransferase 18 U/L (13-40); BUN/Creatinine Ratio 14.3 (10.0-20.0); Bilirubin, Total 0.4 mg/dL (0.2-1.0); Blood Urea Nitrogen 17 mg/dL (9-23); Calcium 10.5 mg/dL (8.5-10.1); Carbon Dioxide 29 mmol/L (20-30); Chloride 105 mmol/L (98-107); Glucose 96 mg/dL (74-106); Potassium 4.7 mmol/L (3.5-5.1); Sodium 142 mmol/L (136-145); Total Protein 7.4 g/dL (5.7-8.2)
[2023-10-17 12:26] LABS: Alanine Aminotransferase < 9 U/L (7-40)
[~2023-10-18] VITALS: Ht 167.6 cm; Wt 79.4 kg
[~2023-10-18 08:00] MED LIST changes: -ACYC1TAB2 PO; +CHOL20007 PO; -FAMO20TA10 PO; -HYDR-4924 PO; -LISI2.5T47 PO; +METO25TA93 PO; -PRED20TA2 PO; +SACU1TAB PO
[2023-10-18] MEDS ORDERED: ANGIOMAX 250 MG VIAL IV ONE (14:51)
[2023-10-18] MEDS ORDERED: HEPARIN SODIUM (PORCINE) 5000 UNITS/ML 1ML VIAL ONE (14:51)
[2023-10-18] MEDS ORDERED: fentaNYL CITRATE 100 MCG/2 ML VL ONE (14:52)
[2023-10-18] MEDS ORDERED: VERAPAMIL 2.5MG/ML INJ 2ML VIAL IV ONE (14:52)
[2023-10-18] MEDS ORDERED: MIDAZOLAM HCL 2MG/2ML 2ml VIAL (1mg/ml) ONE (14:52)
[2023-10-18] MEDS ORDERED: SODIUM CHL 0.9% 0 ML ONE (14:52)
[2023-10-18] MEDS ORDERED: LIDOCAINE 2%HCL (LOCAL ANESTH.) INJ 20ML MDV ONE (14:54)
[2023-10-18] MEDS ORDERED: IODIXANOL 320MG/ML 100ML BTL IV ONE (14:54)
== END 2023-10-18 17:58 | disposition home or self-care (01) ==
LOC: CATH 08:00
PROVIDERS: ATTEND Student in an Organized Health Care Education/Training Program
DX: R93.1 Abnormal findings on diagnostic imaging of heart and coronary circulation (principal); R06.02 Shortness of breath; I25.10 Atherosclerotic heart disease of native coronary artery without angina pectoris; I11.0 Hypertensive heart disease with heart failure; I50.41 Acute combined systolic (congestive) and diastolic (congestive) heart failure; I44.7 Left bundle-branch block, unspecified; Z87.891 Personal history of nicotine dependence; Z79.899 Other long term (current) drug therapy
CPT/HCPCS: 36415; 80053; 85025; 85610; 85730; 93458; 93571; C1725; C1769; C1894; J1644; J2250; J3010; J7030; Q9967; 99152

== ENCOUNTER → 2024-02-22 | Outpatient (CLI) | payer MEDICARE, BC | END | disposition home or self-care (01) | LOC: XYW 07:39 | PROVIDERS: ATTEND Internal Medicine | DX: I35.8 Other nonrheumatic aortic valve disorders (principal); I50.22 Chronic systolic (congestive) heart failure; I51.89 Other ill-defined heart diseases | CPT/HCPCS: 93306 ==

== ENCOUNTER → 2024-03-26 | Outpatient (CLI) | payer MEDICARE, BC | END | disposition home or self-care (01) | LOC: LAB 09:30 | PROVIDERS: ATTEND Internal Medicine | DX: E03.9 Hypothyroidism, unspecified (principal) | CPT/HCPCS: 36415; 84439; 84443 ==

== ENCOUNTER → 2024-08-05 | Outpatient (CLI) | payer MEDICARE, BC ==
[2024-08-05 09:59] LABS: Basophils # (auto) 0.1 10 ^3/uL (0-0.2); Eosinophils # (auto) 0.7 10 ^3/uL (0-0.8); Eosinophils % (auto) 12.4 % (0.0-7.0); Hematocrit 45.2 % (36.0-46.0); Hemoglobin 15.5 g/dL (12.2-16.2); Lymphocytes % (auto) 36.6 % (10.0-50.0); Mean Corpuscular Hemoglobin 32.6 pg (28.0-32.0); Mean Corpuscular Hgb Conc. 34.3 g/dL (32.0-36.0); Monocytes # (auto) 0.4 10 ^3/uL (0-1.3); Monocytes % (auto) 6.7 % (0.0-12.0); Neutrophils # (auto) 2.4 10 ^3/uL (1.6-8.6); Neutrophils % (auto) 43.3 % (37.0-80.0); Platelet Count (auto) 259 10^3/uL (140-450); Red Blood Cells 4.76 10^6/uL (4.0-5.20); Red Cell Distribution Width 12.9 % (11.8-14.3); White Blood Cell 5.5 10^3/uL (4.4-10.8)
[2024-08-05 10:20] LABS: Alkaline Phosphatase 119 U/L (46-116); Anion Gap 8 (5-15); BUN/Creatinine Ratio 15.2 (10.0-20.0); Blood Urea Nitrogen 20 mg/dL (9-23); Calcium 10.6 mg/dL (8.7-10.4); Carbon Dioxide 29 mmol/L (20-31); Chloride 105 mmol/L (98-107); Glucose 101 mg/dL (74-106); Potassium 4.4 mmol/L (3.5-5.1); Sodium 142 mmol/L (136-145)
[2024-08-05 10:21] LABS: Albumin 4.7 g/dL (3.2-4.8); Aspartate Aminotransferase 18 U/L (13-40)
[2024-08-05 10:22] LABS: Bilirubin, Total 0.4 mg/dL (0.2-1.0); Total Protein 7.6 g/dL (5.7-8.2)
[2024-08-05 10:30] LABS: Alanine Aminotransferase < 9 U/L (7-40)
[2024-08-05 13:06] LABS: Triglycerides 158 mg/dL (< 150)
[2024-08-05 13:07] LABS: LDL Cholesterol 108 mg/dL (< 100)
[2024-08-05 13:08] LABS: Cholesterol 178 mg/dL (< 200); HDL Cholesterol 50 mg/dL (40-59)
[2024-08-05 13:36] LABS: Free T3 2.57 pg/mL (2.3-4.2)
[2024-08-05 13:37] LABS: Free T4 (Free Thyroxine) 0.94 ng/dL (0.89-1.76); T3 Total 0.98 ng/mL (0.60-1.81)
[2024-08-05 13:38] LABS: Folate (Folic Acid) 18.62 ng/mL (>5.38)
[2024-08-05 14:11] LABS: Uric Acid 8.7 mg/dL (3.1-7.8)
[2024-08-05 14:18] LABS: Thyroid Stimulating Hormone 3.06 uIU/mL (0.55-4.78)
== END | disposition home or self-care (01) ==
LOC: LAB 09:01
PROVIDERS: ATTEND Internal Medicine
DX: C50.612 Malignant neoplasm of axillary tail of left female breast (principal); I13.10 Hypertensive heart and chronic kidney disease without heart failure, with stage 1 through stage 4 chronic kidney disease, or unspecified chronic kidney disease; E03.9 Hypothyroidism, unspecified; N18.4 Chronic kidney disease, stage 4 (severe); D72.10 Eosinophilia, unspecified; Z79.899 Other long term (current) drug therapy
CPT/HCPCS: 36415; 80053; 80061; 82306; 82607; 82746; 83036; 83615; 84439; 84443; 84480; 84481; 84550; 85025; 86300

== ENCOUNTER 2024-08-13 17:39 | Emergency (ER) | payer MEDICARE, BC ==
[~2024-08-13] VITALS: Ht 167.6 cm; Wt 85.3 kg
[2024-08-13 18:41] VITALS: BP 140/88; PULSE 89; RESP 18; TEMP 97.6; O2SAT 98
[2024-08-13] MEDS ORDERED: TRIAMCINOLONE 40MG/ML 1ML VIAL IM ONE (19:00)
[2024-08-13] MEDS ORDERED: METH-1181 PO (19:18)
[2024-08-13] MEDS: DexAMETHasone SOD PHOS 10MG/1ML VIAL INJ IM ONE (19:58)
[2024-08-13] MEDS ORDERED: METH4PAK PO (20:04)
== END 2024-08-13 20:09 | disposition home or self-care (01) ==
LOC: ER 17:39
DX: M19.011 Primary osteoarthritis, right shoulder (principal); I10 Essential (primary) hypertension; E11.9 Type 2 diabetes mellitus without complications; E78.5 Hyperlipidemia, unspecified; Z88.5 Allergy status to narcotic agent; Z88.8 Allergy status to other drugs, medicaments and biological substances; Z79.899 Other long term (current) drug therapy
CPT/HCPCS: 73030; 96372; 99283; J1100

== ENCOUNTER → 2025-01-27 | Outpatient (CLI) | payer MEDICARE, BC ==
[~2025-01-27] MED LIST changes: +METH-1181 PO; +METH4PAK PO
[2025-01-27 09:11] LABS: Basophils # (auto) 0 10 ^3/uL (0-0.2); Basophils % (auto) 0.5 % (0.0-2.0); Eosinophils # (auto) 0.2 10 ^3/uL (0-0.8); Hematocrit 44.9 % (36.0-46.0); Hemoglobin 14.9 g/dL (12.2-16.2); Lymphocytes # (auto) 2.5 10 ^3/uL (0.4-5.4); Mean Corpuscular Hemoglobin 30.7 pg (28.0-32.0); Mean Corpuscular Hgb Conc. 33.2 g/dL (32.0-36.0); Mean Corpuscular Volume 92.5 fL (80.0-100.0); Monocytes # (auto) 0.5 10 ^3/uL (0-1.3); Neutrophils # (auto) 2.6 10 ^3/uL (1.6-8.6); Neutrophils % (auto) 44.5 % (37.0-80.0); Platelet Count (auto) 275 10^3/uL (140-450); Red Blood Cells 4.86 10^6/uL (4.0-5.20); White Blood Cell 5.8 10^3/uL (4.4-10.8)
[2025-01-27 09:18] LABS: Urine Bacteria FEW /hpf (None Seen); Urine Blood 1+ /uL (Negative); Urine Clarity Clear (Clear); Urine Protein, UAD Negative (Negative); Urine Squamous Epithelial Cell FEW /hpf (<5); Urine Urobilinogen Normal (Negative); Urine WBC 9 /HPF (0-5)
[2025-01-27 09:21] LABS: Urine Color Light-Yellow (Yellow)
[2025-01-27 09:40] LABS: Albumin 4.6 g/dL (3.2-4.8); Alkaline Phosphatase 89 U/L (46-116); Anion Gap 9 (5-15); Aspartate Aminotransferase 14 U/L (13-40); BUN/Creatinine Ratio 26.4 (10.0-20.0); Bilirubin, Total 0.4 mg/dL (0.2-1.0); Calcium 10.3 mg/dL (8.7-10.4); Carbon Dioxide 28 mmol/L (20-31); Chloride 106 mmol/L (98-107); Potassium 4.9 mmol/L (3.5-5.1); Sodium 143 mmol/L (136-145); Total Protein 7.3 g/dL (5.7-8.2)
[2025-01-27 09:41] LABS: Alanine Aminotransferase < 9 U/L (7-40); Blood Urea Nitrogen 33 mg/dL (9-23); Glucose 113 mg/dL (74-106)
== END | disposition home or self-care (01) ==
LOC: LAB 08:27
PROVIDERS: ATTEND Internal Medicine
DX: I13.10 Hypertensive heart and chronic kidney disease without heart failure, with stage 1 through stage 4 chronic kidney disease, or unspecified chronic kidney disease (principal); N18.4 Chronic kidney disease, stage 4 (severe); Z79.899 Other long term (current) drug therapy
CPT/HCPCS: 36415; 80053; 81001; 83036; 85025

== ENCOUNTER → 2025-02-17 | Outpatient (CLI) | payer MEDICARE, BC ==
[2025-02-17 10:51] LABS: Basophils # (auto) 0.1 10 ^3/uL (0-0.2); Basophils % (auto) 0.9 % (0.0-2.0); Eosinophils # (auto) 0.1 10 ^3/uL (0-0.8); Eosinophils % (auto) 1.7 % (0.0-7.0); Hematocrit 46.8 % (36.0-46.0); Hemoglobin 15.5 g/dL (12.2-16.2); Lymphocytes % (auto) 35.3 % (10.0-50.0); Mean Corpuscular Hemoglobin 30.5 pg (28.0-32.0); Mean Corpuscular Hgb Conc. 33.1 g/dL (32.0-36.0); Mean Corpuscular Volume 92.3 fL (80.0-100.0); Monocytes # (auto) 0.3 10 ^3/uL (0-1.3); Monocytes % (auto) 5.5 % (0.0-12.0); Neutrophils # (auto) 3.3 10 ^3/uL (1.6-8.6); Neutrophils % (auto) 56.6 % (37.0-80.0); Nucleated Red Blood Cells % 0.6 %; Platelet Count (auto) 229 10^3/uL (140-450); Red Blood Cells 5.07 10^6/uL (4.0-5.20); Red Cell Distribution Width 13.4 % (11.8-14.3); White Blood Cell 5.8 10^3/uL (4.4-10.8)
[2025-02-17 11:15] LABS: Alkaline Phosphatase 91 U/L (46-116); Anion Gap 10 (5-15); Aspartate Aminotransferase 14 U/L (13-40); BUN/Creatinine Ratio 22.8 (10.0-20.0); Carbon Dioxide 28 mmol/L (20-31); Chloride 102 mmol/L (98-107); Glucose 99 mg/dL (74-106); Sodium 140 mmol/L (136-145); Total Protein 7.8 g/dL (5.7-8.2)
[2025-02-17 11:23] LABS: Alanine Aminotransferase < 9 U/L (7-40); Albumin 4.8 g/dL (3.2-4.8); Blood Urea Nitrogen 31 mg/dL (9-23)
[2025-02-17 11:25] LABS: Bilirubin, Total 0.4 mg/dL (0.2-1.0)
== END | disposition home or self-care (01) ==
LOC: LAB 10:22
PROVIDERS: ATTEND Internal Medicine
DX: C50.612 Malignant neoplasm of axillary tail of left female breast (principal); D72.10 Eosinophilia, unspecified; Z88.5 Allergy status to narcotic agent
CPT/HCPCS: 36415; 80053; 83615; 85025; 86300

== ENCOUNTER 2025-07-22 14:56 | Inpatient (IN) | payer MEDICARE, BC ==
[~2025-07-22] VITALS: Ht 167.6 cm; Wt 79.1 kg
[2025-07-22 14:59] VITALS: BP 114/69; RESP 18; TEMP 97.5; O2SAT 94
--- NOTE | 2025-07-22 15:32 | ECG ---
[facility] Test Date: 2025-07-22 Test Time: 15:07:58 Pat Name: VITALY MASSEY Department: [facility] ED Room: [facility]- Gender: F Carpet Layer: patricia : 1950 Requested By: ANTONIO GARRETT Order Number: [id number] Reading MD: Cachorro Nichols Measurements Intervals [place] Rate: 115 P: 53 UT: 158 QRS: -37 QRSD: 152 T: 126 QT: 350 QTc: 484 Interpretive Statements Sinus tachycardia Left bundle branch block Electronically Signed On 07-23-2025 17:00:21 PDT by Cachorro Nichols Please click the below link to view image of tracing.
[2025-07-22 15:56] VITALS: PULSE 115
--- NOTE | 2025-07-22 15:56 | ED.PDOC ---
History of Present Illness HPI Comments 75-year-old female came to the ER stating that she has been having abdominal pain for the past three days. Abdominal pain associated with nausea but no vomiting or diarrhea. Diffuse abdominal pain 05/15. No radiation of the pain. She does have a history of hypertension. Denies any other symptoms. Chief Complaint: Abdominal Pain Time Seen by MD: 15:09 Primary Care Provider: ALMA Rahman Notes: Nurses Notes, Medications, Allergies Allergies: Coded Allergies: Codeine (Verified Allergy, Severe, STOMACH ACH, 06/14/23) Metronidazole (Unverified Allergy, Severe, ANGIOEDEMA, 06/14/23) Home Meds Active Scripts Methylprednisolone (Medrol Dosepak) 4 Mg Chad, 4 MG PO UD for 6 Days, #21 TAB UAD Start medication in 2 days if symptoms persist Prov:KAREL COOPER 08/13/24 Methocarbamol (Methocarbamol) 500 Mg Tab, 500 MG PO HS PRN for 7 Days, #7 TAB Prov:KAREL COOPER 08/13/24 Potassium Chloride (Potassium Chloride ER) 10 Meq Tab, 10 MEQ PO DAILY for 30 Days, #30 TAB Prov:JOSE ROBERTO OJEDA MD 06/21/23 Furosemide (Lasix) 20 Mg Tb, 20 MG PO QAM for 30 Days, #30 TAB Prov:JOSE ROBERTO OJEDA MD 06/21/23 Reported Medications Cholecalciferol (VITAMIN D3) 2,000 Unit Tab, 1 TAB PO DAILY 10/17/23 Metoprolol Succinate (Metoprolol Succinate Er) 25 Mg Tab, 12.5 MG PO DAILY for 30 Days 10/17/23 Sacubitril-Valsartan (Entresto 24-26 mg) 1 Tab Tab, 0.5 TAB PO BID, TAB 10/17/23 Pravastatin Sodium (PRAVACHOL TABLET) 20 Mg Tb, 2 TAB PO QPM for HIGH CHOLESTROL, TAB 06/16/23 Levothyroxine Sodium (Levothyroxine Sodium) 88 Mcg Tab, 1 TAB PO QAM 06/14/23 Information Source: Patient Mode of Arrival: Ambulatory Severity: Moderate Timing: Days Duration: Since onset Past Medical History PAST MEDICAL HISTORY: DM, High Lipids, HTN, Thyroid Surgical History: Denies all surgeries [employer] History: No Pertinent [employer] History Family History Family History: Reviewed,noncontributory to illness, No family hx of Cancer, No family hx of DM, No family hx of Heart dillan, No family hx of HTN, No family hx ofKidney dillan, No family hx of Liver dillan, No family hx of Lung dillan, No family hx of Stroke Social History Smoker: Non-Smoker Alcohol: Denies ETOH Use Drugs: Denies Drug Use Lives In: Home Constitutional: denies: chills, diaphoresis, fatigue, fever, malaise, sweats, weakness, others EENTM: denies: blurred vision, double vision, ear bleeding, ear discharge, ear drainage, ear pain, ear ringing, eye pain, eye redness, hearing loss, mouth pain, mouth swelling, nasal discharge, nose bleeding, nose congestion, nose pain, photophobia, tearing, throat pain, throat swelling, voice changes, others Respiratory: denies: cough, hemoptysis, orthopnea, SOB at rest, shortness of breath, SOB with excertion, stridor, wheezing, others Cardiovascular: denies: chest pain, dizzy spells, diaphoresis, Dyspnea on exertion, edema, irregular heart beat, left arm pain, lightheadedness, palpitations, PND, syncope, others Gastrointestinal: reports: abdominal pain, nausea; denies: abdomen distended, blood streaked bowels, constipated, diarrhea, dysphagia, difficulty swallowing, hematemesis, melena, poor appetite, poor fluid intake, rectal bleeding, rectal pain, vomiting, others Genitourinary: denies: abnormal vagina bleeding, burning, dyspareunia, dysuria, flank pain, frequency, hematuria, incontinence, pain, , vagina discharge, urgency, others Neurological: denies: dizziness, fainting, headache, left sided numbness, left sided weakness, numbness, paresthesia, pre-existing deficit, right sided numbness, right sided weakness, seizure, speech problems, tingling, tremors, weakness, others Musculoskeletal: denies: back pain, gout, joint pain, joint swelling, muscle pain, muscle stiffness, neck pain, others Integumetry: denies: bruises, change in color, change in hair/nails, dryness, laceration, lesions, lumps, rash, wounds, others Allergic/Immunocompromised: denies: Difficulty Healing, Frequent Infections, Hives, Itching, others Hematologic/Lymphatic: denies: anemia, blood clots, easy bleeding, easy bruising, swollen glands, others Endocrine: denies: excessive hunger, excessive sweating, excessive thirst, excessive urination, flushing, intolerance to cold, intolerance to heat, unexplained weight gain, unexplained weight loss, others Psychiatric: denies: anxiety, bipolar disorder, depression, hopeless, panic disorder, schizophrenia, sleepless, suicidal, others Physical Exam General Appearance: Moderate Distress HEENT: Normal ENT Inspection, Pharynx Normal, TMs Normal Neck: Full Range of Motion, Non-Tender, Normal, Normal Inspection Respiratory: Chest Non-Tender, Lungs Clear, No Accessory Muscle Use, No Respir atory Distress, Normal Breath Sounds Cardiovascular: No Edema, No JVD, No Murmur, No Gallop, Normal Peripheral Pulses, Regular Rate/Rhythm Breast Exam: Deferred Gastrointestinal: No Organomegaly, Non Tender, No Pulsatile Mass, Normal Bowel Sounds, Soft Genitalia: Deferred Pelvic: Deferred Rectal: Deferred Extremities: No calf tenderness, Normal capillary refill, Normal inspection, Normal range of motion, Non-tender, No pedal edema Musculoskeletal : Apperance: Normal Neurologic: Alert, internal medicine doctor II-XII nml as Tested, No Motor Deficits, Normal Affect, Normal Mood, No Sensory Deficits Cerebellar Function: Normal Reflexes: Normal Skin: Dry, Normal Color, Warm Peripheral Pulses: 3+ Radial (R), 3+ Radial (L) Lymphatic: No Adenopathy Was a procedure done? Was a procedure done?: No EKG EKG : Pulse Rate (adult): 115 Block: LBBB Differential Dx Considerations may include: Anemia Electrolyte imbalance X-Ray, Labs, Meds, VS Vital Signs Date Time Temp Pulse Resp B/P (MAP) Pulse Ox O2 Delivery O2 Flow Rate FiO2 07/22/25 15:56 115 07/22/25 15:07 115 07/22/25 14:59 97.5 119 18 114/69 94 97.5 Lab Test 07/22/25 15:58 Range/Units White Blood Count 11.5 H 4.4-10.8 10^3/uL Red Blood Count 5.09 4.0-5.20 10^6/uL Hemoglobin 15.6 12.2-16.2 g/dL Hematocrit 46.2 H 36.0-46.0 % Mean Corpuscular Volume 90.7 80.0-100.0 fL Mean Corpuscular Hemoglobin 30.7 28.0-32.0 pg Mean Corpuscular Hemoglobin Concent 33.9 32.0-36.0 g/dL Red Cell Distribution Width 13.1 11.8-14.3 % Platelet Count 278 140-450 10^3/uL Mean Platelet Volume 8.1 6.9-10.8 fL Neutrophils (%) (Auto) 80.6 H 37.0-80.0 % Lymphocytes (%) (Auto) 12.0 10.0-50.0 % Monocytes (%) (Auto) 6.0 0.0-12.0 % Eosinophils (%) (Auto) 0.8 0.0-7.0 % Basophils (%) (Auto) 0.6 0.0-2.0 % Neutrophils # (Auto) 9.3 H 1.6-8.6 10 ^3/uL Lymphocytes # (Auto) 1.4 0.4-5.4 10 ^3/uL Monocytes # (Auto) 0.7 0-1.3 10 ^3/uL Eosinophils # (Auto) 0.1 0-0.8 10 ^3/uL Basophils # (Auto) 0.1 0-0.2 10 ^3/uL Nucleated Red Blood Cells 0.2 % Sodium Level 141 136-145 mmol/L Potassium Level 3.3 L 3.5-5.1 mmol/L Chloride Level 101 98-107 mmol/L Carbon Dioxide Level 27 20-31 mmol/L Anion Gap 13 5-15 Blood Urea Nitrogen 17 9-23 mg/dL Creatinine 1.24 H 0.550-1.02 mg/dL Glomerular Filtration Rate Calc 46 >90 mL/min BUN/Creatinine Ratio 13.7 10.0-20.0 Serum Glucose 128 H 74-106 mg/dL Calcium Level 10.0 8.7-10.4 mg/dL Patient alert. Complaining of abdominal pain. Vitals stable. Answering questions. EKG does show left bundle branch block. WBC elevated. Possible colitis. Potassium is low. Was given potassium. Explained to the patient. Continue monitoring. Time of 1ST Reevaluation: 15:54 Reevaluation 1ST: Unchanged Patient Education/Counseling: Diagnosis, Treatment, Prognosis Family Education/Counseling: No Family Present SEPSIS Sepsis Screen Date sepsis recognized/suspect: Jul 22, 2025 Time Sepsis recognized/suspect: 1501 Recent Procedure: No On Antibiotic Therapy: No Respiratory Rate >20: No Heart Rate >90: Yes Temp<36 C (96.8 F) or >38.3 C: No SBP <90 or MAP <65 mmHG: No New Acute Mental Status Change: No Is the patient on CPAP, BIPAP,: No Physician Orders Urinalysis (07/22/25 15:15) Ct Ab Pel Wo Con-No Oral Or Iv (07/22/25 16:50) Metronidazole Ivpb Flagyl (07/22/25 17:00) Ceftriaxone Ivpb Rocephin (07/22/25 17:00) 1 Liter Bolus Of 0.9% Ns (07/22/25 17:00) Vital Signs Date Time Temp Pulse Resp B/P (MAP) Pulse Ox O2 Delivery O2 Flow Rate FiO2 07/22/25 15:56 115 07/22/25 15:07 115 07/22/25 14:59 97.5 119 18 114/69 94 97.5 Laboratory Tests Test 07/22/25 15:58 White Blood Count 11.5 10^3/uL (4.4-10.8) H Departure 1 Departure Time of Disposition: 15:55 Impression: Primary Impression: Acute abdominal pain Additional Impressions: Non-specific colitis Hypokalemia Disposition: ADMITTED INPATIENT Admit to: Med Surg Condition: Guarded Critical Care Note Critical Care Time?: No Stability Stability form required: No Heart Score Heart Score: Heart Score Response (Comments) Value History Slightly Suspicious 0 EKG Normal 0 Age >65 2 Risk Factors >3 or Hx ASHD 2 Troponin Normal limit 0 Total 4 ANTONIO GARRETT MD Jul 22, 2025 15:56
[2025-07-22 16:10] LABS: Hematocrit 46.2 % (36.0-46.0); Hemoglobin 15.6 g/dL (12.2-16.2); Mean Corpuscular Hemoglobin 30.7 pg (28.0-32.0); Mean Corpuscular Volume 90.7 fL (80.0-100.0); Nucleated Red Blood Cells % 0.2 %
[2025-07-22 16:20] LABS: Chloride 101 mmol/L (98-107); Sodium 141 mmol/L (136-145)
[2025-07-22 16:21] LABS: Anion Gap 13 (5-15); Calcium 10.0 mg/dL (8.7-10.4); Carbon Dioxide 27 mmol/L (20-31)
[2025-07-22 16:26] LABS: BUN/Creatinine Ratio 13.7 (10.0-20.0); Blood Urea Nitrogen 17 mg/dL (9-23)
[2025-07-22 16:32] LABS: Glucose 128 mg/dL (74-106); Potassium 3.3 mmol/L (3.5-5.1)
[2025-07-22] MEDS ORDERED: POTASSIUM EFFERVESENT TAB 25 MEQ PO ONE (17:00)
[2025-07-22] MEDS ORDERED: PIPERACILLIN-TAZOB 3.375GM 100 ML IV ONE (17:00)
[2025-07-22] MEDS ORDERED: SODIUM CHLORIDE 0.9% 1,000 ML IV ONE (17:00)
--- NOTE | 2025-07-22 17:34 | DVH ---
CLINICAL HISTORY: colitis TECHNIQUE: CT of the abdomen and pelvis was performed without IV contrast. This exam was performed ac cording to our departmental dose optimization program. Up-to-date CT equipment and radiation dose red uction techniques are utilized as appropriate. CTDI 14.8 DLP 817.4 COMPARISON: CT PELVIS WO CONTRAST on DOS: 06/20/23 FINDINGS: Abdomen/Pelvis: The spleen, pancreas, adrenal glands, gallbladder, liver, left kidney, uterus, and bladder are grossl y unremarkable. There are scattered pancreatic prank more calcifications, compatible with chronic ghosh creatitis. A hypodense right posterior renal lesion is incompletely characterized due to lack of IV contrast. The abdominal aorta is normal in course and caliber. There are moderate atherosclerotic calcification s. There is no free intraperitoneal air or fluid. There is no enlarged abdominal pelvic lymph node. Good distal descending colon and rectum on mid caliber with moderate sigmoid colon diverticulosis. Th e remainder of the colon is moderately distended with stool and air. The cecum measures up to 9.1 cm in diameter on coronal images. The appendix is normal. The small bowel is unremarkable. Other: The imaged lower thorax demonstrates mild nonspecific scarring at both lung bases. There are 3 vessel coronary artery and aortic valvular calcifications. No acute osseous abnormality is evident. Impression: Moderate diffuse distention of colon with stool and air. The distal sigmoid and rectum are decompress ed. Colonic diverticulosis. Chronic pancreatitis. Coronary artery and aortic valvular calcifications.
[2025-07-22] MEDS ORDERED: ACETAMINOPHEN 325 MG TAB PO PRN (20:30)
[2025-07-22] MEDS ORDERED: HYDROcodone-ACET 5/325MG TAB PO PRN (20:30)
[2025-07-22] MEDS ORDERED: MORPHINE SULFATE INJ 2 MG/ml SYRG IV PRN (20:30)
[2025-07-22] MEDS ORDERED: ONDANSETRON HCL 4 MG/2 ML VIAL IV PRN (20:30)
[2025-07-22] MEDS ORDERED: PRAVASTATIN SODIUM 20 MG TAB PO SCH (22:00)
--- NOTE | 2025-07-22 22:29 | DVHHP2 ---
History of Present Illness Reason for Visit: Abdominal pain History of Present Illness 75-year-old female presents for evaluation of abdominal pain. Patient endorses a three day history of diffuse abdominal pain with associated nausea without emesis. Denies fever or chills. No the area or constipation. Past Medical History Diverticulitis, hypertension, dyslipidemia, diabetes mellitus, thyroid Past Surgical History Denies Family History Noncontributory Smoke: No ALCOHOL: none Drugs: None Lives: with Family Review of Systems Review of Systems Review of systems are currently negative otherwise addressed in HPI. Allergies: Coded Allergies: Codeine (Verified Allergy, Severe, STOMACH ACH, 06/14/23) Metronidazole (Unverified Allergy, Severe, ANGIOEDEMA, 06/14/23) Medications Current Medications Medications Dose Ordered Sig/Delon Route Start Time Stop Time Status Last Admin Dose Admin Ceftriaxone Sodium 50 ml @ 100 mls/hr Q24H IV 07/23/25 17:00 Levothyroxine Sodium 88 mcg QAM@0600 PO 07/23/25 06:00 Furosemide 20 mg DAILY PO 07/23/25 10:00 Metoprolol Succinate 12.5 mg DAILY PO 07/23/25 10:00 Pravastatin Sodium 20 mg HS PO 07/22/25 22:00 Acetaminophen/ Hydrocodone Bitart 1 tab Q4HP PRN PO 07/22/25 20:30 Ondansetron HCl 4 mg Q4HP PRN IV 07/22/25 20:30 Acetaminophen 650 mg Q6HP PRN PO 07/22/25 20:30 Morphine Sulfate 2 mg Q6HPRN PRN IV 07/22/25 20:30 Exam Vital Signs Vital Signs Date Time Temp Pulse Resp B/P (MAP) Pulse Ox O2 Delivery O2 Flow Rate FiO2 07/22/25 15:56 115 07/22/25 14:59 97.5 18 114/69 94 97.5 Exam Gen: 75-year-old female in mild distress Skin: Warm, dry, normal color and texture, no rash. HEENT: Normocephalic atraumatic, mucous membranes moist and pink. Neck: Cervical and supraclavicular nodes normal without enlargement, trachea is midline, thyroid gland is normal without masses. Pulmonary: Clear to auscultation and percussion bilaterally. Cardiac: Regular rate and rhythm. No murmur Abdomen: Soft, nontender, nondistended, bowel sounds present all 4 quadrants, no guarding, no rigidity, no organomegaly. Extremities: No cyanosis, clubbing, no edema Neuro: Cranial nerves II through XII grossly intact, normal affect and speech, no focal motor deficits. Labs/Xrays ORDERING PHYSICIAN: ANTONIO GARRETT MD PROCEDURE(s): ABPL - CT AB PEL WO CON-NO ORAL OR IV REASON: colitis ORDER NUMBER(s): [id number], ACCESSION NUMBER(s): [id number] CLINICAL HISTORY: colitis TECHNIQUE: CT of the abdomen and pelvis was performed without IV contrast. This exam was performed according to our departmental dose optimization program. Up-to-date CT equipment and radiation dose reduction techniques are utilized as appropriate. CTDI 14.8 DLP 817.4 COMPARISON: CT PELVIS WO CONTRAST on DOS: 06/20/23 FINDINGS: Abdomen/Pelvis: The spleen, pancreas, adrenal glands, gallbladder, liver, left kidney, uterus, and bladder are grossly unremarkable. There are scattered pancreatic prank more calcifications, compatible with chronic pancreatitis. A hypodense right posterior renal lesion is incompletely characterized due to lack of IV contrast. The abdominal aorta is normal in course and caliber. There are moderate atherosclerotic calcifications. There is no free intraperitoneal air or fluid. There is no enlarged abdominal pelvic lymph node. Good distal descending colon and rectum on mid caliber with moderate sigmoid colon diverticulosis. The remainder of the colon is moderately distended with stool and air. The cecum measures up to 9.1 cm in diameter on coronal images. The appendix is normal. The small bowel is unremarkable. Other: The imaged lower thorax demonstrates mild nonspecific scarring at both lung bases. There are 3 vessel coronary artery and aortic valvular calcifications. No acute osseous abnormality is evident. Impression: Moderate diffuse distention of colon with stool and air. The distal sigmoid and rectum are decompressed. Colonic diverticulosis. Chronic pancreatitis. Coronary artery and aortic valvular calcifications. ATED BY: JEFFERSON FAJARDO MD DICTATED DATE/TIME: 07/22/25 1733 Labs Test 07/22/25 15:58 Range/Units White Blood Count 11.5 H 4.4-10.8 10^3/uL Red Blood Count 5.09 4.0-5.20 10^6/uL Hemoglobin 15.6 12.2-16.2 g/dL Hematocrit 46.2 H 36.0-46.0 % Mean Corpuscular Volume 90.7 80.0-100.0 fL Mean Corpuscular Hemoglobin 30.7 28.0-32.0 pg Mean Corpuscular Hemoglobin Concent 33.9 32.0-36.0 g/dL Red Cell Distribution Width 13.1 11.8-14.3 % Platelet Count 278 140-450 10^3/uL Mean Platelet Volume 8.1 6.9-10.8 fL Neutrophils (%) (Auto) 80.6 H 37.0-80.0 % Lymphocytes (%) (Auto) 12.0 10.0-50.0 % Monocytes (%) (Auto) 6.0 0.0-12.0 % Eosinophils (%) (Auto) 0.8 0.0-7.0 % Basophils (%) (Auto) 0.6 0.0-2.0 % Neutrophils # (Auto) 9.3 H 1.6-8.6 10 ^3/uL Lymphocytes # (Auto) 1.4 0.4-5.4 10 ^3/uL Monocytes # (Auto) 0.7 0-1.3 10 ^3/uL Eosinophils # (Auto) 0.1 0-0.8 10 ^3/uL Basophils # (Auto) 0.1 0-0.2 10 ^3/uL Nucleated Red Blood Cells 0.2 % Sodium Level 141 136-145 mmol/L Potassium Level 3.3 L 3.5-5.1 mmol/L Chloride Level 101 98-107 mmol/L Carbon Dioxide Level 27 20-31 mmol/L Anion Gap 13 5-15 Blood Urea Nitrogen 17 9-23 mg/dL Creatinine 1.24 H 0.550-1.02 mg/dL Glomerular Filtration Rate Calc 46 >90 mL/min BUN/Creatinine Ratio 13.7 10.0-20.0 Serum Glucose 128 H 74-106 mg/dL Calcium Level 10.0 8.7-10.4 mg/dL Lipase 30 12-53 U/L SEPSIS Sepsis Screen Date sepsis recognized/suspect: Jul 22, 2025 Time Sepsis recognized/suspect: 1501 Recent Procedure: No On Antibiotic Therapy: No Respiratory Rate >20: No Heart Rate >90: Yes Temp<36 C (96.8 F) or >38.3 C: No SBP <90 or MAP <65 mmHG: No New Acute Mental Status Change: No Is the patient on CPAP, BIPAP,: No Physician Orders Ct Ab Pel Wo Con-No Oral Or Iv (07/22/25 16:50) Admit (07/22/25 20:08) Clear Liq Diet (07/23/25 Breakfast) Urinalysis (07/22/25 20:19) Ceftriaxone 1gm/50ml (Rocephin) (07/23/25 17:00) Levothyroxine Tablet (Synthroid Tablet) (07/23/25 06:00) Furosemide Tablet (Lasix Tablet) (07/23/25 10:00) Metoprolol Xl Succinate (Toprol Xl) (07/23/25 10:00) Pravastatin Sodium Tablet (Pravachol Tab (07/22/25 22:00) Basic Metabolic Panel (07/23/25 04:00) Hydrocodone-Acet 5/325mg Tab ([place] 5/32 (07/22/25 20:30) Ondansetron Hcl (Zofran) (07/22/25 20:30) Complete Blood Count (07/23/25 04:00) Condition: Stable (07/22/25 20:19) Acetaminophen Tablet (Tylenol Tablet) (07/22/25 20:30) Bedrest With Bathroom Privileg (07/22/25 20:19) Morphine Sulfate Injection (07/22/25 20:30) Vital Signs Date Time Temp Pulse Resp B/P (MAP) Pulse Ox O2 Delivery O2 Flow Rate FiO2 07/22/25 15:56 115 07/22/25 15:07 115 07/22/25 14:59 97.5 119 18 114/69 94 97.5 Laboratory Tests Test 07/22/25 15:58 White Blood Count 11.5 10^3/uL (4.4-10.8) H Assessment/Plan Assessment/Plan Assessment Acute abdominal pain Hypokalemia Acute kidney injury Questionable chronic pancreatitis Plan Admit the patient to [facility] to the hospitalist Clear liquid diet GI consult Pain management Resume home medications Continue treatment per orders. Plan discussed with: Patient My Orders Orders - JOSE ROBERTO ROONEY Procedure Category Date Status Time Admit ADMIT 07/22/25 Transmitted 20:08 Clear Liq Diet DIET 07/23/25 Transmitted Breakfast Urinalysis LAB 07/22/25 Logged 20:19 Ceftriaxone 1gm/50ml PHA 07/23/25 In Process (Rocephin) 17:00 Levothyroxine Tablet PHA 07/23/25 In Process (Synthroid Tablet) 06:00 Furosemide Tablet PHA 07/23/25 In Process (Lasix Tablet) 10:00 Metoprolol Xl PHA 07/23/25 In Process Succinate (Toprol Xl) 10:00 Pravastatin Sodium PHA 07/22/25 In Process Tablet (Pravachol Tab 22:00 Basic Metabolic Panel LAB 07/23/25 Verified 04:00 Hydrocodone-Acet PHA 07/22/25 In Process 5/325mg Tab ([place] 20:30 Ondansetron Hcl PHA 07/22/25 In Process (Zofran) 20:30 Complete Blood Count LAB 07/23/25 Verified 04:00 Condition: Stable JEFFREY 07/22/25 In Process 20:19 Acetaminophen Tablet PHA 07/22/25 In Process (Tylenol Tablet) 20:30 Bedrest With Bathroom JEFFREY 07/22/25 In Process Privileg 20:19 Morphine Sulfate PHA 07/22/25 In Process Injection 20:30 Date of Service: Jul 22, 2025 Billing Provider: JOSE ROBERTO ROONEY Common Visit Codes: [id number] INP/OBS CARE (MOD) JOSE ROBERTO ROONEY Jul 22, 2025 22:29
[2025-07-23] MEDS ORDERED: LEVOTHYROXINE SODIUM 88 MCG TAB PO SCH (06:00)
[2025-07-23] MEDS ORDERED: METOPROLOL SUCCINATE XL 50 MG TAB PO SCH (10:00)
[2025-07-23] MEDS ORDERED: FUROSEMIDE 20 MG TAB PO SCH (10:00)
--- NOTE | 2025-07-23 15:33 | DVHPN2 ---
Reviewed: H&P Changes from previous H/P or p: No Changes General: Per HPI Objective Vitals Vital Signs Date Time Temp Pulse Resp B/P (MAP) Pulse Ox O2 Delivery O2 Flow Rate FiO2 07/22/25 15:56 115 07/22/25 14:59 97.5 18 114/69 94 97.5 Medications Current Medications Medications Dose Ordered Sig/Delon Route Start Time Stop Time Status Last Admin Dose Admin Ceftriaxone Sodium 50 ml @ 100 mls/hr Q24H IV 07/23/25 17:00 Levothyroxine Sodium 88 mcg QAM@0600 PO 07/23/25 06:00 Furosemide 20 mg DAILY PO 07/23/25 10:00 Metoprolol Succinate 12.5 mg DAILY PO 07/23/25 10:00 Pravastatin Sodium 20 mg HS PO 07/22/25 22:00 Acetaminophen/ Hydrocodone Bitart 1 tab Q4HP PRN PO 07/22/25 20:30 Ondansetron HCl 4 mg Q4HP PRN IV 07/22/25 20:30 Acetaminophen 650 mg Q6HP PRN PO 07/22/25 20:30 Morphine Sulfate 2 mg Q6HPRN PRN IV 07/22/25 20:30 Laboratory Results Laboratory Tests 07/22/25 15:58 Chemistry Test 07/22/25 15:58 Calcium Level 10.0 mg/dL (8.7-10.4) Lipid panel Test 07/22/25 15:58 Lipase 30 U/L (12-53) Labs and/or images reviewed: Labs reviewed by me, Image(s) reviewed by me Assessment/Plan Plan discussed with: Patient Date of Service: Jul 23, 2025 Billing Provider: XIMENA HARRIS MD Common Visit Codes: NOT BILLABLE XIMENA HARRIS MD Jul 23, 2025 15:33
[2025-07-23] MEDS ORDERED: PANTOPRAZOLE 40 MG/10 ML VIAL INJ IV SCH (15:45)
--- NOTE | 2025-07-23 17:48 | DVHDS2 ---
Discharge Summary Date of Admission Jul 22, 2025 at 20:08 Date of Discharge: Jul 23, 2025 Labs/Diagnostic Data: Laboratory Results Test 07/22/25 15:58 White Blood Count 11.5 10^3/uL (4.4-10.8) Red Blood Count 5.09 10^6/uL (4.0-5.20) Hemoglobin 15.6 g/dL (12.2-16.2) Hematocrit 46.2 % (36.0-46.0) Mean Corpuscular Volume 90.7 fL (80.0-100.0) Mean Corpuscular Hemoglobin 30.7 pg (28.0-32.0) Mean Corpuscular Hemoglobin Concent 33.9 g/dL (32.0-36.0) Red Cell Distribution Width 13.1 % (11.8-14.3) Platelet Count 278 10^3/uL (140-450) Mean Platelet Volume 8.1 fL (6.9-10.8) Neutrophils (%) (Auto) 80.6 % (37.0-80.0) Lymphocytes (%) (Auto) 12.0 % (10.0-50.0) Monocytes (%) (Auto) 6.0 % (0.0-12.0) Eosinophils (%) (Auto) 0.8 % (0.0-7.0) Basophils (%) (Auto) 0.6 % (0.0-2.0) Neutrophils # (Auto) 9.3 10 ^3/uL (1.6-8.6) Lymphocytes # (Auto) 1.4 10 ^3/uL (0.4-5.4) Monocytes # (Auto) 0.7 10 ^3/uL (0-1.3) Eosinophils # (Auto) 0.1 10 ^3/uL (0-0.8) Basophils # (Auto) 0.1 10 ^3/uL (0-0.2) Nucleated Red Blood Cells 0.2 % Sodium Level 141 mmol/L (136-145) Potassium Level 3.3 mmol/L (3.5-5.1) Chloride Level 101 mmol/L (98-107) Carbon Dioxide Level 27 mmol/L (20-31) Anion Gap 13 (5-15) Blood Urea Nitrogen 17 mg/dL (9-23) Creatinine 1.24 mg/dL (0.550-1.02) Glomerular Filtration Rate Calc 46 mL/min (>90) BUN/Creatinine Ratio 13.7 (10.0-20.0) Serum Glucose 128 mg/dL (74-106) Calcium Level 10.0 mg/dL (8.7-10.4) Lipase 30 U/L (12-53) Other Laboratory Tests 07/22/25 15:58 Brief Hx & Hospital Course: 75-year-old female w Past Medical History Diverticulitis, hypertension, dyslipidemia, diabetes mellitus, thyroid presents for evaluation of abdominal pain. Patient endorses a three day history of diffuse abdominal pain with associated nausea without emesis. Denies fever or chills. No the area or constipation Patient came in with abdominal pain, hence history of diverticulitis and IV. Also history of thyroid. Abdominal pain with nausea and but no emesis. CT abdomen was done showing moderate distention diffusely of colon with stool and air,. There was colonic diverticulosis and chronic pancreatitis. Also coronary artery calcifications seen. patient left without notifying ED nursing staff. patient eloped, no notes on whether IV access was established or not. patient accepted all risks by undergoing her decision to elope. Assessment Acute gastroenteritis, infectious etiology likely constipation, Complicated with diverticulosis, acute on chronic, Diverticulosis without diverticulitis Leukocytosis Neutrophilia Tachycardia Acute abdominal pain Hypokalemia TAMMY due to VMN Questionable chronic pancreatitis Plan - patient eloped, and thus assumes all risks including . Condition at Discharge: Undetermined Final Diagnosis/Problems List Acute gastroenteritis, infectious etiology likely constipation, Complicated with diverticulosis, acute on chronic, Diverticulosis without diverticulitis Leukocytosis Neutrophilia Tachycardia Acute abdominal pain Hypokalemia TAMMY due to VMN Questionable chronic pancreatitis Discharge Disposition: Eloped Discharge Instruct/Medications Scheduled Cholecalciferol (Vitamin D3), 1 TAB PO DAILY, (Reported) Furosemide (Lasix), 20 MG PO QAM Levothyroxine Sodium (Levothyroxine Sodium), 1 TAB PO QAM, (Reported) Methylprednisolone (Medrol Dosepak), 4 MG PO UD Metoprolol Succinate (Metoprolol Succinate Er), 12.5 MG PO DAILY, (Reported) Potassium Chloride (Potassium Chloride ER), 10 MEQ PO DAILY Pravastatin Sodium (Pravachol Tablet), 2 TAB PO QPM, (Reported) Sacubitril-Valsartan (Entresto 24-26 mg), 0.5 TAB PO BID, (Reported) Scheduled PRN Methocarbamol (Methocarbamol), 500 MG PO HS PRN Discharge Statement: "Patient was advised to return to the ER or call 911 if any headaches, dizziness, shortness of breath, chest pain, abdominal pain, bleeding, fevers, or worsening of medical condition. Patient was counseled about treatment plan, medications, possible side effects, patientverbalized understanding. All questions were answered to the best of my ability. This discharge took greater then 30 minutes in planning, reviewing documentation, counseling the patient, and discussing with other team members." ASSESSMENT ASSESSMENT Assessment Date of Service: Jul 23, 2025 Billing Provider: XIMENA HARRIS MD Common Visit Codes: NOT BILLABLE XIMENA HARRIS MD Jul 23, 2025 17:47
== END 2025-07-22 20:47 | disposition left against medical advice (07) | DRG 391 ==
LOC: ER 14:56 → OVERFLOW 20:08
PROVIDERS: ADMIT Student in an Organized Health Care Education/Training Program; ATTEND Student in an Organized Health Care Education/Training Program
DX: A09 Infectious gastroenteritis and colitis, unspecified (principal); N17.0 Acute kidney failure with tubular necrosis; K86.1 Other chronic pancreatitis; E87.6 Hypokalemia; Z53.29 Procedure and treatment not carried out because of patient's decision for other reasons; I10 Essential (primary) hypertension; I25.10 Atherosclerotic heart disease of native coronary artery without angina pectoris; K59.00 Constipation, unspecified; K57.30 Diverticulosis of large intestine without perforation or abscess without bleeding; E11.9 Type 2 diabetes mellitus without complications; E78.5 Hyperlipidemia, unspecified; Z88.5 Allergy status to narcotic agent; Z79.899 Other long term (current) drug therapy
CPT/HCPCS: 36415; 74176; 80048; 83690; 85025; 93005; G0378